=== PATIENT | female | born 1955 | race Caucasian/White ===

== ENCOUNTER → 2020-11-15 13:25 | Outpatient (BNVA) | payer MEDICARE, OTHER, SELFPAY | PROVIDERS: PCP Internal Medicine; Visit Provider Hospitalist | DX: Z13.89 Encounter for screening for other disorder (principal) | CPT/HCPCS: Q3014 ==

== ENCOUNTER 2020-11-23 | Outpatient (REF) | payer MEDICARE, OTHER, SELFPAY | END 2020-11-23 00:01 | disposition home or self-care (01) | LOC: HO.VC | PROVIDERS: Visit Provider Internal Medicine | DX: Z23 Encounter for immunization (principal) | CPT/HCPCS: 0011A ==

== ENCOUNTER 2020-12-20 | Outpatient (REF) | payer MEDICARE, OTHER, SELFPAY | END 2020-12-20 00:01 | disposition home or self-care (01) | LOC: HO.VC | PROVIDERS: Visit Provider Internal Medicine | DX: Z23 Encounter for immunization (principal) | CPT/HCPCS: 0012A ==

== ENCOUNTER → 2021-02-13 13:19 | Outpatient (BNVA) | payer MEDICARE, OTHER, SELFPAY | PROVIDERS: PCP Internal Medicine; Visit Provider Hospitalist | DX: R91.8 Other nonspecific abnormal finding of lung field (principal); J67.9 Hypersensitivity pneumonitis due to unspecified organic dust; J84.9 Interstitial pulmonary disease, unspecified; J31.0 Chronic rhinitis; D86.9 Sarcoidosis, unspecified; Z79.899 Other long term (current) drug therapy | CPT/HCPCS: 99212 ==

== ENCOUNTER 2021-05-01 09:55 | Outpatient (REF) | payer MEDICARE, OTHER, SELFPAY ==
--- NOTE | 2021-05-01 17:10 | PFT_ITS ---
FLOWS: FEV1 of 87% of predicted at 2.39 L. FVC 81% of predicted at 2.92 L. FEV1 to FVC ratio of 0.82. No bronchodilator response except in small to medium airways. LUNG VOLUMES: Total lung capacity 89% of predicted at 5.05 L. Residual volume 86% of predicted at 2.03 L. Slow vital capacity 91% of predicted at 3.02 L. Expiratory reserve volume 159% of predicted at 1.26 L. Diffusion capacity is mildly decreased. IMPRESSION: No obstructive or restrictive ventilatory defect. Isolated defect in diffusion capacity suggests underlying pulmonary vascular or interstitial disease. Clinical correlation is advised. MD PHILIP Solorio/MODL / [id number]
== END 2021-05-01 09:56 | disposition home or self-care (01) ==
LOC: HO.RESP 09:55
PROVIDERS: PCP Internal Medicine; Visit Provider Hospitalist
DX: J84.9 Interstitial pulmonary disease, unspecified (principal)
CPT/HCPCS: 94060; 94727; 94729; 99212

== ENCOUNTER → 2021-10-02 09:55 | Outpatient (BNVA) | payer MEDICARE, OTHER, SELFPAY | PROVIDERS: PCP Internal Medicine; Visit Provider Hospitalist | DX: R91.8 Other nonspecific abnormal finding of lung field (principal); D86.9 Sarcoidosis, unspecified; J67.9 Hypersensitivity pneumonitis due to unspecified organic dust; J84.9 Interstitial pulmonary disease, unspecified | CPT/HCPCS: 99212 ==

== ENCOUNTER → 2022-04-12 09:16 | Outpatient (BNVA) | payer MEDICARE, OTHER, SELFPAY | PROVIDERS: PCP Internal Medicine; Visit Provider Hospitalist | DX: R91.8 Other nonspecific abnormal finding of lung field (principal); J67.9 Hypersensitivity pneumonitis due to unspecified organic dust; J84.9 Interstitial pulmonary disease, unspecified | CPT/HCPCS: 99212 ==

== ENCOUNTER → 2022-10-10 10:39 | Outpatient (BNVA) | payer MEDICARE, OTHER, SELFPAY | PROVIDERS: PCP Internal Medicine; Visit Provider Hospitalist | DX: J84.9 Interstitial pulmonary disease, unspecified (principal); J67.9 Hypersensitivity pneumonitis due to unspecified organic dust; R91.8 Other nonspecific abnormal finding of lung field | CPT/HCPCS: 99212 ==

== ENCOUNTER → 2023-04-10 10:29 | Outpatient (BNVA) | payer MEDICARE, OTHER, SELFPAY | PROVIDERS: PCP Internal Medicine; Visit Provider Hospitalist | DX: J84.9 Interstitial pulmonary disease, unspecified (principal); J67.9 Hypersensitivity pneumonitis due to unspecified organic dust; R91.8 Other nonspecific abnormal finding of lung field; R01.1 Cardiac murmur, unspecified | CPT/HCPCS: 99212 ==

== ENCOUNTER 2024-05-11 09:41 | Outpatient (AMB) | payer MEDICARE, OTHER, SELFPAY ==
[2024-05-11 09:44] VITALS: BP 110/60; PULSE 78; O2SAT 99; BMI 16.7
--- NOTE | 2024-05-11 09:44 | A.OFFVIS_ITS ---
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 Apparently she was in her usual state health until she saw a provider at her primary care office with noted a murmur in addition to from rubs or crackles. She ended up getting a CT scan of the chest room when she could be demonstrating some interstitial lung disease. She was referred to Pulmonary. Pulmonary is concern for interstitial process therefore under went multiple laboratory specimens. Negative for TB or infectious processes. She was positive with hypersensitivity panel for phoma and other molds. The patient did also have an evaluation from a thoracic surgeon. She had a wedge biopsy. The frozen section was negative for malignancy. However, she did have areas of scarring in addition to do poorly formed non-necrotizing granulomas consistent with chronic hypersensitivity pneumonitis. The on further questioning the patient states that in her old school she had significant exposure to mold. The classroom was actually a shower room prior to being a classroom. Therefore significant amount mold. No significant mold in the home. She does have a finished basement she does not have a dehumidifier. The patient does not have any indoor plants and does not have a garden. She has minimal exposure to mold otherwise. 02/04/2020. The patient has a telephone visit. Overall she is doing well she denies any respiratory diff symptoms at this time. She does state that she did follow up in [place] for her interstitial lung disease. They confirmed that indeed she has hypersensitive pneumonitis in her previous hypersensitivity panel was positive phoma. Which still waiting for the hyper sensitivity panel was done in [place]. In the meantime she understands he needs to avoid mold as much as possible. We had given her some recommendations in the last time and I emphasized some of the recommendations at this time as well. We did review her blood work. She was concerned about the rheumatoid factor. I reassured her that her anti CCP was negative. Does not appear to have a connective tissue disease. The patient did have a CT scan of the chest and November 09 in [place]. Therefore, we do not have to repeat the CT scan until next year. In the meantime will perform pulmonary function studies during her next visit in early fall. 04/12/2022 the patient is here for a pulmonary follow-up visit. Overall she continues to well. Denies any significant shortness of breath or cough. She continues to be pretty asymptomatic from a respiratory status. She did have an evaluation in [place] and did undergo a CT scan of chest and a PFT. I do not have the CT scan at this time although I will requested. In the meantime I did review her PFTs demonstrating a trend decrease in the FVC and the FEV1. A trend increase in the total lung capacity and a significant decrease in the diffusing capacity. Again, I do not have the recent CT scan of the chest but I will requested. At this time the patient continues to be feeling well. We did talk about her siblings and appears that there is no history of sarcoid in the family in regards of their cardiomyopathies and defibrillators. She also had an evaluation by her corset fitter and found him to doing well. She is scheduled to undergo an echocardiogram. Will follow-up in 6 months. This point no therapeutic interventions. She is being mindful about mold and other hypersensitivity reactions that she has to be mindful. 10/10/2022 the patient is here for a pulmonary follow-up visit. Overall the patient is doing well. Denies any new respiratory complaints. Denies any significant shortness of breath or cough. Denies any recent exposure to any mold. she did work for many years and mold infested building. This is no longer the case. The patient did have a follow-up in [place] where she was going to undergo pulmonary function studies and a CT scan of the chest. Unfortunately it was rescheduled to October and then rescheduled to the spring. Therefore we did review her last PFTs which demonstrated a mild diffusion impairment. Explained to her that this is a minimal finding but just something that appear to be slightly worse compared to the PFTs that she had a year before. In addition to that we did review her CT scan of the chest from 2020. this was not her last CT scan. Although did show some nodular densities in the right lower lobe primarily. Also some post operative changes. Will wait to see the results of her PFTs and her repeat CT scan. I have reassured the patient that if she is feeling well without any new respiratory complaints it is unlikely that this process is progressing. The patient has not been on any immunosuppressive therapy or immunomodulator therapy for this condition. 04/10/2023 The patient is here for a pulmonary follow up visit. Overall doing very well from a respiratory stand point. She is avoiding mold. Denies any mold in her home. She was exposed to mold while she was working. We did review her CT chest done at [facility] [place]. Her GGO and ILD changes have improved near completely. Does have paratracheal nodules that have not change in more than 4 years ?Thyroid or parathyroid gland. Also her Thoracic aorta is slight dilated based on the non contrast study. On exam she does have a systolic murmur. She will be followed closely by cardiology. Her PFTs only demonstrated a very mild diffusion impairment, otherwise normal. 05/11/2024 the patient is here for a pulmonary follow-up visit. The patient is doing fairly well from a respiratory status. Denies any shortness breath or cough. The patient is dealing now with the chronic illness of her . I believe the going to be talking about hospice care this is causing significant amount of stress in her life right now. At least we did review her pulmonary function studies that she had in [place] and they were fairly normal except for an isolated mild diffusion impairment. In addition to that we did review her previous CT scan last 1 back from 2021 demonstrating multiple pulmonary nodules. She also has some underlying interstitial lung disease. Would be unreasonable to follow-up with the pulmonary nodules. She prefers to have all the studies out of [place]. Therefore she is going to reach out to see if they want to do a CT scan. Otherwise the patient follow-up in a year's time. [facility] Medical History (Updated 04/10/23 @ 23:20 by Christian Novak MD) Murmur Insomnia Chronic rhinitis Pulmonary nodules Sarcoidosis Hypersensitivity pneumonitis ILD (interstitial lung disease) Social History Patient Tobacco Use Status: Never used Tobacco Review of Systems Const Reports difficulty sleeping and Denies night sweats ENT Denies lip swelling, Denies mouth lesions and Denies tongue swelling Card Denies chest pain and Denies dyspnea on exertion Resp Denies dyspnea on exertion GI Denies abdominal pain Musc Denies no additional complaints Neuro Denies Neuro-related abnormal movements Psych Reports as per HPI Sam/Lymph Denies easy bleeding and Denies lymphadenopathy Aller/Immun Denies lip swelling and Denies tongue swelling Physical Exam Vital Signs: Last Vital Signs Pulse 78 05/11/24 09:44 BP 110/60 05/11/24 09:44 Pulse Ox 99 05/11/24 09:44 Oxygen Delivery Method Room Air 05/11/24 09:44 BMI result Body Mass Index 16.7 Const General: alert Neck Neck: Yes normal visual inspection, Yes full ROM and Yes no lymphadenopathy Chest Chest palpation & inspection: normal inspection of the chest Resp Effort & Inspection: normal respiratory effort Auscultation: no crackles, no rales and diminished lung sounds Cardio Rate: regular rate Rhythm: regular rhythm Heart sounds: S1 normal heart sound present, S2 normal heart sound present and Murmur heart sound present systolic late and III/ GI Palpation (GI): Soft to palpation and nontender Auscultation: normal bowel sounds Skin General skin exam: rashes and/or lesions noted Assessment & Plan Assessment & Plan (1) Pulmonary nodules: Code(s): R91.8 - Other nonspecific abnormal finding of lung field Category: Medical (2) Hypersensitivity pneumonitis: Comment: +HSP for phoma mold Code(s): J67.9 - Hypersensitivity pneumonitis due to unspecified organic dust Category: Medical (3) ILD (interstitial lung disease): Comment: appears to be more consistent with chronic hypersensitivity interstitial lung disease than sarcoidosis. Now, significantly resolved. Code(s): J84.9 - Interstitial pulmonary disease, unspecified Category: Medical (4) Murmur: Code(s): R01.1 - Cardiac murmur, unspecified Category: Medical Plan PFTs to be performed in [place] 02/[address] chest No plans for therapy at this time Should wear a mask specially when environment that is high risk for mold Dr Ruiz from cardiology for cardiac eval and murmur and mildly dilated aorta F/U 1 yr Coding Level of Care Code Est Pt Level 4 (46477) Diagnoses Pulmonary nodules R91.8 Hypersensitivity pneumonitis J67.9 ILD (interstitial lung disease) J84.9 Murmur R01.1 Time Spent (min) 15
== END 2024-05-11 10:09 | disposition home or self-care (01) ==
PROVIDERS: PCP Internal Medicine; Visit Provider Hospitalist
DX: R91.8 Other nonspecific abnormal finding of lung field (principal); J67.9 Hypersensitivity pneumonitis due to unspecified organic dust; J84.9 Interstitial pulmonary disease, unspecified; R01.1 Cardiac murmur, unspecified
CPT/HCPCS: 99214

== ENCOUNTER → 2024-05-11 09:41 | Outpatient (BNVA) | payer MEDICARE, OTHER, SELFPAY | PROVIDERS: PCP Internal Medicine; Visit Provider Hospitalist | DX: J67.9 Hypersensitivity pneumonitis due to unspecified organic dust (principal); J84.9 Interstitial pulmonary disease, unspecified; R91.8 Other nonspecific abnormal finding of lung field; R01.1 Cardiac murmur, unspecified | CPT/HCPCS: 99212 ==